=== PATIENT | male | born 1975 | race Caucasian/White ===

== ENCOUNTER → 2019-12-25 08:51 | Outpatient (BNVA) | payer OTHER, SELFPAY | PROVIDERS: Visit Provider Physician Assistant | DX: Z76.89 Persons encountering health services in other specified circumstances (principal) ==

== ENCOUNTER → 2019-12-27 11:45 | Outpatient (BNVA) | payer OTHER, SELFPAY | PROVIDERS: Visit Provider Physician Assistant | DX: Z76.89 Persons encountering health services in other specified circumstances (principal) ==

== ENCOUNTER → 2019-12-29 13:15 | Outpatient (BNVA) | payer OTHER, SELFPAY | PROVIDERS: Visit Provider Internal Medicine | DX: Z13.89 Encounter for screening for other disorder (principal) | CPT/HCPCS: 99214 ==

== ENCOUNTER → 2020-01-02 11:58 | Outpatient (BNVA) | payer OTHER, SELFPAY | PROVIDERS: Visit Provider Physician Assistant | DX: S01.01XD Laceration without foreign body of scalp, subsequent encounter (principal); X58.XXXD Exposure to other specified factors, subsequent encounter; F07.81 Postconcussional syndrome | CPT/HCPCS: 99213 ==

== ENCOUNTER → 2020-01-04 14:41 | Outpatient (BNVA) | payer OTHER, SELFPAY | PROVIDERS: Visit Provider Surgery | DX: S01.01XD Laceration without foreign body of scalp, subsequent encounter (principal) | CPT/HCPCS: 99203 ==

== ENCOUNTER → 2020-01-08 10:49 | Outpatient (BNVA) | payer OTHER, SELFPAY | PROVIDERS: Visit Provider Physician Assistant | DX: S01.01XA Laceration without foreign body of scalp, initial encounter (principal); X58.XXXA Exposure to other specified factors, initial encounter | CPT/HCPCS: 99212; 99214 ==

== ENCOUNTER → 2020-01-11 12:49 | Outpatient (BNVA) | payer OTHER, SELFPAY | PROVIDERS: Visit Provider Surgery | DX: S01.01XA Laceration without foreign body of scalp, initial encounter (principal) | CPT/HCPCS: 99212 ==

== ENCOUNTER → 2020-01-19 09:10 | Outpatient (BNVA) | payer OTHER, SELFPAY | PROVIDERS: Visit Provider Internal Medicine | DX: S01.91XD Laceration without foreign body of unspecified part of head, subsequent encounter (principal); W18.30XD Fall on same level, unspecified, subsequent encounter | CPT/HCPCS: 99213 ==

== ENCOUNTER 2020-01-23 07:47 | Outpatient (RCR) | payer OTHER, SELFPAY | END 2020-02-01 13:03 | disposition home or self-care (01) | LOC: HO.WCC 07:47 | PROVIDERS: Visit Provider Surgery | DX: S01.01XD Laceration without foreign body of scalp, subsequent encounter (principal) | CPT/HCPCS: 99212 ==

== ENCOUNTER → 2020-02-07 16:04 | Outpatient (BNVA) | payer OTHER, SELFPAY | PROVIDERS: Visit Provider Surgery | DX: S01.01XD Laceration without foreign body of scalp, subsequent encounter (principal) | CPT/HCPCS: 99212 ==